=== PATIENT | female | born 2000 | race American Indian/Alaskan Native ===

== ENCOUNTER 2021-05-15 04:41 | Outpatient (CLI) | payer MEDICAID ==
[2021-05-15] MEDS ORDERED: LACTATED RINGERS 1,000 ML IV ONE (05:20)
[2021-05-15 06:09] LABS: Bilirubin,Urine NEG (Negative); Blood,Urine NEG (Negative); Color,Urine Straw (Yellow); Mucus,Urine FEW /HPF; Protein,Urine <15 mg/dL mg/dL (Negative); Urobilinogen,Urine < 2.0 mg/dL (<2.0)
[2021-05-15 07:07] VITALS: BP 122/75
== END 2021-05-15 07:38 | disposition home or self-care (01) ==
LOC: TRG 04:41 → APU 04:44 → TRG 07:38
PROVIDERS: ATTEND Obstetrics & Gynecology
DX: O26.893 Other specified pregnancy related conditions, third trimester (principal); R10.9 Unspecified abdominal pain; Z3A.35 35 weeks gestation of pregnancy
CPT/HCPCS: 36415; 59025; 81001; 84112; 96360; J7120; J3490

== ENCOUNTER 2021-05-27 14:40 | Outpatient (CLI) | payer MEDICAID ==
[2021-05-27 15:56] VITALS: BP 127/73
== END 2021-05-27 16:47 | disposition home or self-care (01) ==
LOC: TRG 14:40 → APU 14:41 → TRG 16:47
PROVIDERS: ATTEND Obstetrics & Gynecology
DX: Z34.93 Encounter for supervision of normal pregnancy, unspecified, third trimester (principal); Z3A.37 37 weeks gestation of pregnancy
CPT/HCPCS: 59025

== ENCOUNTER 2021-06-02 11:43 | Outpatient (CLI) | payer MEDICAID ==
[2021-06-02 14:19] VITALS: BP 121/58
== END 2021-06-02 14:26 | disposition home or self-care (01) ==
LOC: TRG 11:43 → APU 11:44 → TRG 14:26
PROVIDERS: ATTEND Obstetrics & Gynecology
DX: Z34.93 Encounter for supervision of normal pregnancy, unspecified, third trimester (principal); Z3A.38 38 weeks gestation of pregnancy
CPT/HCPCS: 59025